=== PATIENT | male | born 1960 | race Caucasian/White ===

== ENCOUNTER 2025-01-27 15:32 | Emergency (ER) | payer OTHER, SELFPAY ==
--- NOTE | ~2025-01-27 | XR_ITS ---
EXAMINATION: XR CHEST CLINICAL INFORMATION: weakness COMPARISON: None available. TECHNIQUE: 2 views of the chest were obtained. FINDINGS: Minimal linear atelectasis or scarring is noted in the left lung base. Lungs are clear otherwise. Heart size is within normal limits. There is no pleural effusion. XR/XR chest 2V IMPRESSION: Minimal scarring or subsegmental atelectasis in the left lung base. Electronically signed by: Cj Brenner MD 01/27/2025 04:24 PM EDT
[2025-01-27 15:36] VITALS: BP 123/81; PULSE 85; RESP 18; TEMP 37.1; O2SAT 96; BMI 28.3
--- NOTE | 2025-01-27 15:36 | ED.GENADULT ---
HPI - General Adult General Chief complaint: Weakness Stated complaint: Dizziness Time Seen by Provider: 01/27/25 16:04 History of Present Illness ED Provider: Terry Patterson MD HPI narrative: 64-year-old male with BPH, depression anxiety, GERD last saw his physician maybe 2 years ago here with multiple generalized complaints he tells me mostly he is here for feeling ?woozy on occasion ?over the past 2 weeks. No near-syncope chest pain palpitations. Denies exercise but never has exertional chest pain or anginal symptoms. [place] slightly lightheaded while driving several days ago not associated with any other symptoms. No abdominal pain nausea vomiting. He has been eating and drinking well no alcohol, drugs or toxic habits. Related Data Allergies Allergy/AdvReac Type Severity Reaction Status Date / Time No Known Allergies Allergy Verified 01/27/25 15:38 [facility] Social History Social History Smoked in Last 30 Days: No Use of substances other than those prescribed or required for medical reasons: No Advance Directives: No Advance Directives Information Provided: Yes Physical Exam ED Exam Exam: EXAM: Gen: Alert, awake, well appearing, well hydrated. Head: Atraumatic Eyes: Anicteric, Normal conjunctiva. ENT: Moist mucosa, no pallor. ? Neck: Supple. Skin: ?No observable rash or bruising on exposed or examined skin Respiratory: Breathing comfortably, No distress.Clear to auscultation bilaterally, symmetric chest expansion, No wheeze, rales, ronchi. Cardiovascular: Regular rate and rhythm. No murmurs or rub. Well perfused periphery, warm extremities. No edema. ? Abdominal: No focal tenderness. Soft, no objective distension. No palpable masses or obvious organomegaly. ?No guarding, no rebound tenderness or other peritoneal findings. : No flank tenderness. Neuro: Alert. Gross movement of all extremities intact. ? Psych: Calm. Cooperative. MSK: No grossly visible deformity. Vital signs: See flowsheet Vital Signs: Vital Signs - 24 hr 01/27/25 15:36 01/27/25 15:52 01/27/25 17:28 Temperature 98.8 F 0 F L Pulse Rate 85 78 68 Respiratory Rate 18 18 12 Blood Pressure 123/81 125/88 122/69 Pulse Oximetry 96 95 95 Oxygen Delivery Method Room Air Room Air Room Air BMI result Body Mass Index 28.3 Course Course Course Narrative: MALIKA, this is a rapid medical exam performed by Job Kennedy please refer to primary provider for complete H&P- 64-year-old male presents for evaluation of lightheadedness, ?feeling woozy for the last 2 weeks. He denies any pain. Plan for basic labs, EKG and viral swabs. He also complains of joint pain Medical Decision Making Medical Decision Making MDM Narrative: Medical Decision Makin-year-old male with multiple generalized symptoms. He has a reassuring ECG physical examination and lab work. Chest x-ray is without any acute pathology. Patient looks quite well and I tried to reassure him I do not think there is any acute emergent pathology Preliminary Favored Differential Diagnosis: Malaise, fatigue, deconditioning, dehydration, orthostasis, vasovagal, among additional considered etiologies Testing Interpreted Independently: ?See below for details Radiology or Lab testing Results Reviewed: ?See below for details Consults: ?See below for details Independent Historians/External Chart Reviews: ?See below for details Social Determinants of Health Impacting MDM/Planning: ?See below for details Lab Data MDM Lab Attestation statement: I reviewed the patient's lab results. 01/27/25 16:04 01/27/25 16:04 Labs: Lab Results 01/27/25 01/27/25 Range/Units 16:04 16:54 WBC 7.4 (4.8-10.8) X10*3/uL RBC 4.78 (4.60-5.80) X10*6/uL Hgb 14.1 (14.0-18.0) g/dl Hct 41.5 L (42.0-52.0) % MCV 86.8 (80.0-98.0) fL MCH 29.5 (27.0-33.0) pg MCHC 34.0 (31.0-36.0) g/dl RDW 13.6 (11.0-16.0) % Plt Count 246 (160-400) X10*3/uL MPV 8.7 L (9.4-12.4) fL Immature Gran % (Auto) 0.1 (0.0-0.4) % Neut % (Auto) 58.4 (45-73) % Lymph % (Auto) 33.2 (20-40) % [place]ift % (Auto) 6.5 (2-11) % Eos % (Auto) 1.5 (0-4) % Baso % (Auto) 0.3 (0-2) % Lymph # (Auto) 2.5 (1.2-4.9) X10*3/uL [place] # (Auto) 0.5 (0.1-1.2) X10*3/uL Eos # (Auto) 0.1 (0.0-0.4) X10*3/uL Baso # (Auto) 0.0 (0.0-0.2) X10*3/uL Abs Immat Gran (auto) 0.01 (0.00-0.03) X10*3/uL Absolute Neuts (auto) 4.3 (2.0-8.3) x10*3/uL Absolute Nucleated RBC 0.000 (0.0-0.012) X10*3/uL Nucleated RBC % (auto) 0.0 (0.0-0.2) /100WBC Sodium 143 (135-145) mmol/L Potassium 3.7 (3.3-5.1) mmol/L Chloride 111 H (96-108) mmol/L Carbon Dioxide 23 (22-29) mmol/L Anion Gap 13 (12-20) BUN 16 (9-16) mg/dL Creatinine 1.40 (0.5-1.4) mg/dL Estim Creat Clear Calc 52.1 Estimated GFR 51 Random Glucose 109 (60-115) mg/dL Calcium 8.8 (8.4-10.2) mg/dL Total Bilirubin 0.4 (0.0-1.0) mg/dL AST 32 (5-37) U/L ALT 40 (0-40) U/L Alkaline Phosphatase 61 (39-117) U/L Total Protein 7.3 (6.5-8.0) g/dL Albumin 4.3 (3.5-5.0) g/dL Lipase 22 (8-78) U/L Urine Color Yellow Urine Appearance Clear Urine pH 6.0 (5.0-9.0) Ur Specific [place] 1.025 (1.005-1.025) Urine Protein Negative (Neg-Trace) mg/dL Urine Glucose (UA) Negative (Negative) mg/dL Urine Ketones Trace (Negative) mg/dL Urine Blood Moderate (2+) H (Negative) Urine Nitrite Negative (Negative) Ur Leukocyte Esterase Negative (Negative) Urine RBC 6-10 H (0-2) /HPF Urine WBC 0-5 (0-5) /HPF Ur Squamous Epith Cells 0-2 (0-2) /HPF Urine Bacteria None Seen (None Seen) Hyaline Casts 0-2 (0-2) /LPF COVID-19 (CELESTINO) Negative (Negative) COVID-19 Clin Com See Note Independent Interpretation I performed an independent interpretation of an: EKG (Sinus rhythm no ischemic changes. Rate 73 QTC 460. Normal intervals no comparison) Discharge Plan Discharge Clinical Impression: Lightheaded Patient Disposition: Home, Self-Care Instructions: Lightheadedness (ED) Additional Instructions: DISCHARGE DIAGNOSES: Lightheadedness fatigue dizziness joint pain unclear cause reassuring workup HISTORY OF PRESENTATION: ?Symptoms as above for 2 weeks EMERGENCY DEPARTMENT COURSE,TESTS, TREATMENTS: While in the ED today you had blood counts, electrolytes kidney function EKG chest x-ray and a comprehensive examination without concerning findings DISCHARGE MEDICATIONS: ?[We have made no changes to your regular medication regimen] FOLLOW-UP: ?Call your primary or general physician soon as possible to discuss your symptoms, your ED visit and to discuss follow up plans Please call your primary doctor 1st thing Thursday morning to discuss follow up INSTRUCTIONS ?& RETURN PRECAUTIONS: If any symptoms change first call your primary physician, if it is after-hours your primary doctors office should have a provider environmental education specialist you can speak with. If the symptoms are severe or very concerning to you then call 911 or return to the ED. Terry Patterson MD Emergency Physician [facility] Interventions: ED Discharge Assessment Last Done: 01/27/25 17:28 Discharge Date/Time: 01/27/25 17:32 Print Language: Marshallese
--- NOTE | 2025-01-27 15:38 | ECG_ITS ---
Test Reason : DIZZINESS Blood Pressure : */* mmHG Vent. Rate : 73 BPM Atrial Rate : 73 BPM P-R Int : 152 ms QRS Dur : 78 ms QT Int : 418 ms P-R-T Axes : 63 60 32 degrees QTcB Int : 460 ms Normal sinus rhythm Normal ECG No previous ECGs available Referred By: Dani Kennedy Electronically Signed By: THEE ARANDA
[2025-01-27 15:52] VITALS: BP 125/88; PULSE 78; RESP 18; O2SAT 95
--- NOTE | 2025-01-27 15:56 | PC.NURSE ---
64 M presents to ED feeling sick for 2 weeks, tired, weakness, and pounding headache that comes and goes. A+OX4 and ambulates indepedently but sts does have cane, doesn't need it. RR even and unlabored, denies CP or SOB. Lung sounds clear bilat. Pt denies any pain at this time. 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
[2025-01-27 16:09] LABS: MANUAL DIFF FLAG NO
[2025-01-27 16:19] LABS: Hematocrit 41.5 % (42.0-52.0); Hemoglobin 14.1 g/dl (14.0-18.0); Imm Gran Abs Auto 0.01 X10*3/uL (0.00-0.03); Imm Gran Pct Auto 0.1 % (0.0-0.4); Lymphocytes Absolute Auto 2.5 X10*3/uL (1.2-4.9); Mean Corpuscular HGB Conc 34.0 g/dl (31.0-36.0); Mean Corpuscular Hemoglobin 29.5 pg (27.0-33.0); Mean Corpuscular Volume 86.8 fL (80.0-98.0); NRBC Abs Auto 0.000 X10*3/uL (0.0-0.012); NRBC Pct Auto 0.0 /100WBC (0.0-0.2); Platelet Count 246 X10*3/uL (160-400); Red Blood Count 4.78 X10*6/uL (4.60-5.80); White Blood Count 7.4 X10*3/uL (4.8-10.8)
--- OUTSIDE RECORDS SUMMARY | 2025-01-27 16:19 | XMS_ITS | Clinical Summary ---
Author Organization [facility] Address [address] [place] [address] Care Team Providers Care Bar Helper Name Role Phone Unavailable Primary Care Provider Unavailabl e Source Comments PLEASE NOTE, if this patient is a minor, it may be UNLAWFUL to discuss sensitive information that is contained in these records (such as FAMILY PLANNING, MENTAL HEALTH or SUBSTANCE ABUSE) with the minor patient's parent or other person without the patient's specific authorization.[facility] Allergies No known active allergies Medications ibuprofen (ADVIL,MOTRIN) 600 mg tabletIndication s:Toothache Take 1 Tab by mouth 4 (four) times daily as needed for pain 30 Tab 9 Active amoxicillin-pot clavulanate (AUGMENTIN) 875-125 mg per tabletIndication s:Tooth infection Take 1 Tab by mouth 2 (two) times daily 14 Tab 9 Active omeprazole (PRILOSEC) [address] capsule TAKE 1 CAPSULE BY MOUTH TWICE DAILY 30 MINUTES BEFORE A MEAL 2 Active hydrOXYzine HCL (ATARAX) 25 mg tablet TAKE 1 TO 2 TABLETS BY MOUTH AT BEDTIME NEEDED FOR INSOMNIA 2 Active DULoxetine (CYMBALTA) [address] capsule Take 60 mg by mouth daily Active fluticasone propionate (FLONASE) 50 mcg/actuation nasal spray SHAKE LIQUID AND USE 2 SPRAYS IN EACH NOSTRIL DAILY IN THE MORNING FOR ALLERGIES 2 Active DULoxetine (CYMBALTA) [address] capsule Take 60 mg by mouth once daily 2 Active Active Problems Problem Noted Date Diagnosed Date Stomach problems 09/18/2021 Acute stress reaction 09/18/2021 Social History Tobacco Use Types Packs/Day Years Used Date Smoking Tobacco: Never Assessed Social Connections Answer Date Recorded Connectedness 0 02/17/2024 Financial Resource Strain Answer Date R ecorded Financial Resource Strain 0 2018 Stress Answer Date Recorded Stress 0 01/22/2019 Physical Activity Answer Date Recorded Physical Activity 0 01/22/2019 Food Insecurity Answer Date Recorded Food 0 02/25/2024 Transportation Needs Answer Date Record ed Transportation 0 01/22/2019 Housing Stability Answer Date Recorded Housing 0 01/22/2019 Safety and Environment Answer Date [place] rded Safety 0 01/22/2019 Utilities Answer Date Recorded Utilities 0 01/22/2019 Employment Answer Date Recorded Stress 0 02/17/2024 Sex and Gender Information Value Date Recorded Sex Assigned at Male 09/18/2021 7:03 AM PDT Legal Sex Male 6:43 AM PST Gender Identity Male 09/18/2021 7:03 AM PDT Sexual Orientation Straight 09/18/2021 7: 03 AM PDT Last Filed Vital Signs Vital Sign Reading Time Taken Comments Blood Pressure 135/93 12/18/2021 2:01 PM EDT Pulse 89 12/18/2021 2:01 PM EDT Temperature - - Respiratory Rate - - Oxygen Saturation - - Inhaled Oxygen Concentration - - Weight - - Height - - Body Mass Index - - Plan of Treatment Not on file Insurance [facility]
--- OUTSIDE RECORDS SUMMARY | 2025-01-27 16:19 | XMS_ITS | Clinical Summary ---
Author Organization [facility] Address [address] [place] [id number] Phone Care Team Providers Care Forestry Aid Name Role Phone Thalia Riggins MD Primary Care Provider [phone] Allergies No known active allergies Medications DULoxetine (CYMBALTA) 60 MG capsule Take 60 mg by mouth daily. Active omeprazole (PRILOSEC) 20 MG tablet Take 20 mg by mouth daily. Active ciprofloxacin-de xamethasone (CIPRODEX) otic suspension Place 4 drops into the right ear 2 (two) times a day. 7.5 mL 12/07/2018 Active Social History Tobacco Use Types Packs/Day Years Used Date Smoking Tobacco: Never Education Answer Date Recorded Are you interested in more education? Not on ramon e 09/26/2022 Are you concerned about learning? Not on file 09/26/2022 No 09/26/2022 No 09/26/2022 Digital Access Answer Date Recorded No 10/27/2022 No 10/27/2022 No 10/27/2022 Reliable internet access at home? Not on file 10/27/2022 Device with a working camera? Not on file Sex and Gender Information Value Date Recorded Sex Assigned at Male 12/07/2018 2:58 PM EDT Legal Sex Male 9:49 PM EDT Gender Identity Male 12/07/2018 2:58 PM EDT Sexual Orientation Not on file Last Filed Vital Signs Vital Sign Reading Time Taken Comments Blood Pressure 114/52 12/07/2018 4:07 PM EDT Pulse 89 12/07/2018 4:07 PM EDT Temperature 36.6 C (97.9 F) 12/07/2018 4:07 PM EDT Respiratory Rate 22 12/07/2018 4:07 PM EDT Oxygen Saturation 98% 12/07/2018 4:07 PM EDT Inhaled Oxygen Concentration - - Weight 74.8 kg (165 lb) 12/07/2018 2:56 PM EDT Height 165.1 cm (5' 5 ) 12/07/2018 2:56 PM EDT Body Mass Index 27.46 12/07/2018 2:56 PM EDT Plan of Treatment Not on file Medical Devices Not on file Insurance [employer] Care Teams Forestry Aid Relationship Specialty Start Date End Date Thalia Riggins MD [address] [place] [id number] PCP - General Internal Medicine 12/07/18 Additional Source Comments The information contained in this document represents components of the legal health record. It is not the complete legal health record.[facility]
[2025-01-27 16:23] LABS: COVID-19 Test Negative (Negative); IDNOW Serial# 58CA691E
[2025-01-27 16:24] LABS: Alanine Aminotransferase 40 U/L (0-40); Albumin Level 4.3 g/dL (3.5-5.0); Alkaline Phosphatase 61 U/L (39-117); Anion Gap 13 (12-20); Aspartate Amino Transferase 32 U/L (5-37); Blood Urea Nitrogen 16 mg/dL (9-16); Calcium 8.8 mg/dL (8.4-10.2); Carbon Dioxide 23 mmol/L (22-29); Chloride 111 mmol/L (96-108); Creatinine Clr Calc Pharmacy 52.1; Estimated Glomerular Filt Rate 51; Lipase 22 U/L (8-78); Potassium 3.7 mmol/L (3.3-5.1); Sodium 143 mmol/L (135-145); Total Protein 7.3 g/dL (6.5-8.0)
[2025-01-27 17:02] LABS: Appearance Urine Clear; Glucose Urine UA Negative (Negative); PH 6.0 (5.0-9.0); Specific Gravity - Urine 1.025 (1.005-1.025); UMIC TRIGGER UACC YES
[2025-01-27 17:28] VITALS: BP 122/69; PULSE 68; RESP 12; TEMP -17.7; TEMP 0; O2SAT 95
== END 2025-01-27 17:32 | disposition home or self-care (01) ==
PROVIDERS: Physician Assistant; Emergency Provider Emergency Medicine
DX: R42 Dizziness and giddiness (principal); R53.1 Weakness; F41.1 Generalized anxiety disorder; K21.9 Gastro-esophageal reflux disease without esophagitis
CPT/HCPCS: 71046; 80053; 81001; 83690; 85025; 87635; 93005; 99283; 99285

== ENCOUNTER → 2025-01-27 15:38 | Outpatient (BNV) | payer SELFPAY | PROVIDERS: Emergency Provider Emergency Medicine; Visit Provider Internal Medicine | DX: R42 Dizziness and giddiness (principal) | CPT/HCPCS: 93010 ==

== ENCOUNTER → 2025-01-27 15:39 | Outpatient (BNV) | payer SELFPAY | PROVIDERS: Emergency Provider Emergency Medicine; Visit Provider Radiology Diagnostic Radiology | DX: R53.1 Weakness (principal) | CPT/HCPCS: 71046 ==